=== PATIENT | female | born 1985 | race Caucasian/White ===

== ENCOUNTER 2016-05-17 14:34 | Inpatient (IN) | payer MEDICAID ==
[~2016-05-17] VITALS: Ht 162.6 cm; Wt 68.7 kg
[~2016-05-17 14:34] MED LIST: BUPR150SR PO; DIVA250T4 PO; FOLI1 PO; IPRA4AER IH; MULT-29 PO; THIA100 PO
[2016-05-17] MEDS ORDERED: INFLUENZA VIRUS VACCINE QVS 2016-17 (3YR+)/PF 60 MCG/0.5 ML SYRINGE IM ONE (17:15)
[2016-05-17] MEDS ORDERED: PNEUMOCOCCAL VACCINE POLYVALENT 0.5 ML VIAL [PPSV23] IM ONE (17:15)
[2016-05-17 17:46] VITALS: BP 132/77
[2016-05-17] MEDS: LORazepam 2 MG TABLET PO PRN (18:15)
[2016-05-17] MEDS ORDERED: OLANZapine 5 MG TABLET PO SCH (21:00)
[2016-05-18 00:56] VITALS: BP 111/61
[2016-05-18] MEDS: LORazepam 2 MG TABLET PO PRN ×4 (08:57→20:47)
[2016-05-18] MEDS: CIPROFLOXACIN HCL 500 MG TABLET PO SCH ×2 (08:57→16:32)
[2016-05-18] MEDS: NICOTINE 14 MG/24 HOUR PATCH TD SCH (08:58)
[2016-05-18] MEDS ORDERED: FLUoxetine HCL 20 MG CAPSULE PO SCH (09:00)
[2016-05-18 09:38] VITALS: BP 125/68
[2016-05-18 17:37] VITALS: BP 109/61
[2016-05-18] MEDS: OLANZapine 10 MG TABLET PO SCH (20:28)
[2016-05-18] MEDS: ZOLPIDEM TARTRATE 10 MG TABLET PO PRN ×2 (22:29→22:52)
[2016-05-19 06:06] VITALS: BP 155/92
[2016-05-19 08:14] VITALS: BP 113/76
[2016-05-19] MEDS: CIPROFLOXACIN HCL 500 MG TABLET PO SCH ×2 (08:39→16:04)
[2016-05-19] MEDS: FLUoxetine HCL 20 MG CAPSULE PO SCH (08:40)
[2016-05-19] MEDS: NICOTINE 14 MG/24 HOUR PATCH TD SCH (08:40)
[2016-05-19 09:30] LABS: BASOPHILS % (AUTO) 0.7 % (0.0-2.0); EOSINOPHILS % (AUTO) 1.7 % (1.0-6.0); HEMATOCRIT 42.8 % (36-46); HEMOGLOBIN 13.6 g/dL (12.0-16.0); LYMPHOCYTES # (AUTO) 1.8 K/uL (1.0-4.8); LYMPHOCYTES % (AUTO) 27.5 % (22.0-44.0); MEAN CORPUSCULAR HEMOGLOBIN 29.1 pg (26.0-34.0); MEAN CORPUSCULAR HGB CONC 31.9 G/dL (31.0-37.0); MEAN CORPUSCULAR VOLUME 91 fL (80-100); MONOCYTES # (AUTO) 0.8 K/uL (0.1-1.0); MONOCYTES % (AUTO) 12.6 % (2.0-9.0); NEUTROPHILS # (AUTO) 3.8 K/uL (1.8-7.7); NEUTROPHILS % (AUTO) 57.5 % (40.0-70.0); PLATELET COUNT (AUTO) 282 K/uL (150-450); RED BLOOD CELL COUNT(AUTO) 4.69 MIL/uL (4.00-5.20); RED CELL DISTRIBUTION WIDTH 15.8 % (11.5-14.5); WHITE BLOOD COUNT (AUTO) 6.6 K/uL (4.5-11.0)
[2016-05-19 10:04] LABS: ALANINE AMINOTRANSFERASE 67 U/L (12-78); ALBUMIN 3.1 g/dL (3.4-5.0); ANION GAP 12 mmol/L (8-16); ASPARTATE AMINOTRANSFERASE 45 U/L (15-37); BILIRUBIN,TOTAL 0.1 mg/dL (0.1-1.0); CALCIUM, TOTAL 8.5 mg/dL (8.8-10.5); CARBON DIOXIDE 23 mmol/L (22-29); CHLORIDE 105 mmol/L (98-107); CHOL/HDL RATIO 2.1 (3.9-5.7); CREATININE 0.77 mg/dL (0.60-1.30); GLOMERULAR FILTR. RATE CALC > 60 mL/min (>60); POTASSIUM 3.8 mmol/L (3.5-5.1); SODIUM SERUM 140 mmol/L (136-145); THYROID STIMULATING HORMONE 1.86 uIU/mL (0.36-3.74); TOTAL PROTEIN, SERUM 7.3 g/dL (6.4-8.2); UREA NITROGEN, BLOOD 18 mg/dL (7-18)
[2016-05-19] MEDS: LORazepam 2 MG TABLET PO PRN ×2 (11:09→16:04)
[2016-05-19 16:43] VITALS: BP 135/84
[2016-05-19] MEDS ORDERED: ACETAMINOPHEN 325 MG TABLET PO PRN (17:15)
[2016-05-19] MEDS ORDERED: IBUPROFEN 400 MG TABLET PO PRN (17:15)
[2016-05-19] MEDS ORDERED: ALBUTEROL SULFATE/IPRATROPIUM 100-20 MCG/SPRAY 4 GM INHALER IH PRN (17:15)
[2016-05-19] MEDS: ZOLPIDEM TARTRATE 10 MG TABLET PO PRN (20:09)
[2016-05-19] MEDS: OLANZapine 10 MG TABLET PO SCH (20:09)
[2016-05-20 00:14] VITALS: BP 110/66
[2016-05-20 08:14] VITALS: BP 132/84
[2016-05-20] MEDS: NICOTINE 14 MG/24 HOUR PATCH TD SCH (08:45)
[2016-05-20] MEDS: FLUoxetine HCL 20 MG CAPSULE PO SCH (08:45)
[2016-05-20] MEDS: CIPROFLOXACIN HCL 500 MG TABLET PO SCH ×2 (08:45→16:53)
[2016-05-20] MEDS: LORazepam 2 MG TABLET PO PRN ×2 (09:47→14:13)
[2016-05-20] MEDS: HALOPERIDOL 5 MG TABLET PO PRN ×2 (12:22→23:25)
[2016-05-20 16:00] VITALS: BP 133/74
[2016-05-20] MEDS: ZOLPIDEM TARTRATE 10 MG TABLET PO PRN (20:39)
[2016-05-20] MEDS: OLANZapine 10 MG TABLET PO SCH (20:39)
[2016-05-21 00:28] VITALS: BP 108/64
[2016-05-21 08:40] VITALS: BP 117/60
[2016-05-21] MEDS: FLUoxetine HCL 20 MG CAPSULE PO SCH (08:50)
[2016-05-21] MEDS: CIPROFLOXACIN HCL 500 MG TABLET PO SCH ×2 (08:50→16:17)
[2016-05-21] MEDS: NICOTINE 14 MG/24 HOUR PATCH TD SCH (08:51)
[2016-05-21] MEDS: LORazepam 2 MG TABLET PO PRN ×3 (09:34→19:25)
[2016-05-21] MEDS: HALOPERIDOL 5 MG TABLET PO PRN (16:17)
[2016-05-21 16:27] VITALS: BP 125/73
[2016-05-21] MEDS: OLANZapine 10 MG TABLET PO SCH (20:41)
[2016-05-21] MEDS: ZOLPIDEM TARTRATE 10 MG TABLET PO PRN (21:03)
[2016-05-22 01:30] VITALS: BP 105/61
[2016-05-22] MEDS ORDERED: ESCITALOPRAM OXALATE 10 MG TABLET PO SCH (09:00)
[2016-05-22 09:05] VITALS: BP 114/60
[2016-05-22] MEDS: HydrOXYzine PAMOATE 25 MG CAPSULE PO SCH ×3 (09:27→16:09)
[2016-05-22] MEDS: CIPROFLOXACIN HCL 500 MG TABLET PO SCH ×2 (09:27→16:10)
[2016-05-22] MEDS: NICOTINE 14 MG/24 HOUR PATCH TD SCH (09:27)
[2016-05-22] MEDS ORDERED: BuPROPion HCL XL 150 MG ER TABLET PO SCH (10:15)
[2016-05-22] MEDS: HALOPERIDOL 5 MG TABLET PO PRN (14:11)
[2016-05-22 16:20] VITALS: BP 135/68
[2016-05-22] MEDS ORDERED: HYDR-4031 PO (16:53)
[2016-05-22] MEDS ORDERED: OLAN7.5T2 PO (16:53)
[2016-05-22] MEDS ORDERED: CIPR-278 PO (16:53)
[2016-05-22] MEDS ORDERED: ESCI20TA PO (16:53)
[2016-05-22] MEDS ORDERED: OLANZapine 7.5 MG TABLET PO SCH (21:00)
[2016-05-23] MEDS ORDERED: ESCITALOPRAM OXALATE 20 MG TABLET PO SCH (09:00)
== END 2016-05-22 17:40 | disposition home or self-care (01) | DRG 750 ==
LOC: B2S 17:16 → EDSTATUS 17:26
PROVIDERS: ADMIT Psychiatry & Neurology Psychiatry; ATTEND Psychiatry & Neurology Psychiatry
DX: F25.0 Schizoaffective disorder, bipolar type (principal); F15.20 Other stimulant dependence, uncomplicated; F23 Brief psychotic disorder; F10.10 Alcohol abuse, uncomplicated; J45.909 Unspecified asthma, uncomplicated; F32.9 Major depressive disorder, single episode, unspecified; F12.90 Cannabis use, unspecified, uncomplicated; Z59.0 Homelessness
CPT/HCPCS: 83036; 84439; 84443